=== PATIENT | female | born 1940 | race Two or more races ===

== ENCOUNTER 2019-05-04 11:49 | Emergency (ER) | payer OTHER, MEDICAID ==
[~2019-05-04] VITALS: Ht 157.5 cm; Wt 45.4 kg
[2019-05-04] MEDS ORDERED: MIDAZOLAM DRIP 50 mg/50mL 50 ML IV SCH (11:55)
[2019-05-04] MEDS ORDERED: SODIUM CHLORIDE 0.9% 1,000 ML IV ONE ×5 (11:55→13:45)
[2019-05-04] MEDS ORDERED: NOREPINEPHRINE 8 MG/250ML KIT 250 ML IV ONE (11:55)
[2019-05-04] MEDS ORDERED: NOREPINEPHRINE 8 MG/250ML KIT 250 ML IV SCH (11:58)
[2019-05-04] MEDS ORDERED: PROPOFOL 100 ML IV SCH (11:58)
[2019-05-04] MEDS ORDERED: SODIUM CHLORIDE 0.9% 2,000 ML IV ONE (13:15)
[2019-05-04] MEDS ORDERED: SODIUM CHLORIDE 0.9% 3,000 ML IV ONE (13:15)
[2019-05-04 13:25] LABS: Basophils # (auto) 0.1 uL; Eosinophils # (auto) 0 uL; Hemoglobin 10.6 g/dL (12.2-16.2)
[2019-05-04 13:27] LABS: Basophils % (auto) 0.4 % (0.0-2.0); Eosinophils % (auto) 0.1 % (0.0-7.0); Hematocrit 35.5 % (36.0-46.0); Lymphocytes # (auto) 1.3 uL; Lymphocytes % (auto) 6.5 % (10.0-50.0); Mean Corpuscular Hemoglobin 31.9 pg (28.0-32.0); Mean Corpuscular Hgb Conc. 29.8 g/dL (32.0-36.0); Mean Corpuscular Volume 107.1 fL (80.0-100.0); Monocytes # (auto) 0.5 uL; Monocytes % (auto) 2.4 % (0.0-12.0); Neutrophils # (auto) 17.9 uL; Neutrophils % (auto) 90.6 % (37.0-80.0); Platelet Count (auto) 378 10^3/uL (140-450); Red Blood Cells 3.32 10^6/uL (4.0-5.20); Red Cell Distribution Width 16.2 % (11.8-14.3); White Blood Cell 19.8 10^3/uL (4.4-10.8)
[2019-05-04 13:46] LABS: Albumin 2.3 g/dL (3.4-5.0); BUN/Creatinine Ratio 44.9; Calcium 8.3 mg/dL (8.5-10.1); Potassium 5.2 mmol/L (3.5-5.1)
[2019-05-04 13:48] LABS: Lactic Acid w/Reflex 11.6 mmol/L (0.4-2.0)
[2019-05-04 13:51] LABS: Bilirubin, Total 0.5 mg/dL (0.2-1.0); Total Protein 5.6 g/dL (6.4-8.2)
[2019-05-04] MEDS ORDERED: PIPERACILLIN-TAZOB 3.375GM 100 ML IV ONE (14:45)
[2019-05-04] MEDS ORDERED: VANCOMYCIN 1GM/250ML 250 ML IV ONE (14:45)
[2019-05-04] MEDS ORDERED: fentaNYL Drip 2500mCg/250mlNS 250 ML IV SCH (16:09)
[2019-05-04] MEDS ORDERED: SODIUM BICARBONATE 8.4 % INJ 50ML VIAL IV ONE (16:15)
[2019-05-04] MEDS ORDERED: InsuLIN R (HUMAN) 100 UNITS in SODIUM CHL 0.9% 99 ML IV SCH (16:38)
[2019-05-04] MEDS: SODIUM CHLORIDE 0.9% 1,000 ML IV SCH ×2 (16:38→18:38)
[2019-05-04] MEDS ORDERED: DexAMETHasone SOD PHOS 10MG/1ML VIAL INJ IV ONE (16:45)
[2019-05-04] MEDS ORDERED: DEXTROSE (50%) 50ML SYRG IV PRN (16:45)
[2019-05-04] MEDS ORDERED: CALCIUM GLUC 4.65meq/50ml D5AE 50 ML IV ONE (16:45)
[2019-05-04] MEDS ORDERED: InsuLIN REG 1unit/0.01ml Soln (100units/ml) IV ONE (16:45)
[2019-05-04] MEDS ORDERED: ALBUTEROL SULF 2.5 MG/0.5ML(0.5%) NEB SOLN NEB ONE (16:45)
[2019-05-04 17:32] LABS: BUN/Creatinine Ratio 62.1; Calcium 6.3 mg/dL (8.5-10.1); Magnesium 1.3 mg/dL (1.6-2.6); Phosphorus 5.3 mg/dL (2.5-4.90); Potassium 3.9 mmol/L (3.5-5.1)
[2019-05-04 17:50] LABS: Red Cell Distribution Width 14.9 % (11.8-14.3)
[2019-05-04 17:52] LABS: Hematocrit 25.7 % (36.0-46.0); Hemoglobin 8.2 g/dL (12.2-16.2); Mean Corpuscular Hemoglobin 31.7 pg (28.0-32.0); Platelet Count (auto) 289 10^3/uL (140-450); Red Blood Cells 2.59 10^6/uL (4.0-5.20); White Blood Cell 20.2 10^3/uL (4.4-10.8)
[2019-05-04 18:01] LABS: Basophils % (manual) 0 (0.0-2.0); Blast Cells 0; Eosinophils % (manual) 0 (0-7); Metamyelocytes % 0; Myelocytes % 0; Promyelocytes % 0; Reactive Lymphocytes 0
[2019-05-04] MEDS: ACCU-CHEK COMFORT CURVE STRIP VI SCH ×3 (18:17→21:04)
[2019-05-04 18:20] VITALS: BP 115/49
[2019-05-04 19:56] LABS: Band Neutrophils % (manual) 18; Lymphocytes % (manual) 2 (10.0-50.0); Monocytes % (manual) 3 (0-12)
[2019-05-04 20:04] LABS: Albumin 2.1 g/dL (3.4-5.0); BUN/Creatinine Ratio 46.2
[2019-05-04 20:07] VITALS: BP 107/54
[2019-05-04 20:07] LABS: Bilirubin, Total 0.4 mg/dL (0.2-1.0); Total Protein 5.1 g/dL (6.4-8.2)
[2019-05-04] MEDS ORDERED: SODIUM CHLORIDE 0.9% 1,000 ML IV SCH ×2 (20:38→22:38)
[2019-05-04] MEDS ORDERED: ACETAMINOPHEN 650 MG RECT SUPP PR ONE (20:45)
[2019-05-04 21:00] VITALS: BP 114/59
[2019-05-05] MEDS ORDERED: ALBUTEROL SULF 2.5 MG/0.5ML(0.5%) NEB SOLN NEB SCH (06:00)
[2019-05-05] MEDS ORDERED: ACETYLCYSTEINE 20%(200MG/ML) SOL 4ML NEB SCH (06:00)
== END 2019-05-04 21:23 | disposition short-term general hospital (02) ==
LOC: EDBD 11:49 → ER 11:49
DX: A41.9 Sepsis, unspecified organism (principal); G93.41 Metabolic encephalopathy; R41.82 Altered mental status, unspecified
CPT/HCPCS: 31500; 36415; 36556; 36600; 51702; 70450; 71045; 71250; 74176; 80048; 80053; 82010; 82805; 82962; 83605; 83735; 83930; 84100; 84484; 85007; 85025; 85027; 87040; 87070; 87077; 87186; 87205; 96361; 96365; 96366; 96368; 96375; 99291; J0610; J1100; J1815; J2250; J2543; J2704; J3370; J7611; 94002